=== PATIENT | female | born 2000 | race Caucasian/White ===

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

== ENCOUNTER 2024-11-23 18:23 | Emergency (ER) | payer MEDICARE, MEDICAID ==
[2024-11-23] MEDS ORDERED: Sodium Chloride 0.9% 10 ML Syringe FLUSH PRN (21:28)
[2024-11-23 21:51] LABS: BASOPHILS PERCENT AUTO 0.1 % (0.0-1.0); EOSINOPHILS PERCENT AUTO 0.1 % (1.0-3.0); LYMPHOCYTES PERCENT AUTO 16.8 % (20.5-50.1); MONOCYTES PERCENT AUTO 12.3 % (2-8); NEUTROPHILS PERCENT AUTO 70.7 % (42.2-75.2); PLATELET COUNT,PLT 261 10^3/uL (150-450); RED BLOOD CELL COUNT 4.19 10^6/uL (4.2-5.4); WHITE BLOOD CELL COUNT,WBC 9.0 10^3/uL (5.0-10.0)
[2024-11-23] MEDS: Lactated Ringers 1,000 ML IV ONE (21:52)
[2024-11-23] MEDS: Ondansetron 4 MG/2 ML SDV IVPUSH ONE (21:55)
[2024-11-23] MEDS: Ketorolac 30 MG/ML SDV IVPUSH ONE (21:55)
[2024-11-23 22:12] LABS: A/G RATIO 0.74; ALANINE AMINOTRANSFERASE,ALT 31 U/L (14-59); ASPARTATE AMNIOTRANSFERASE,AST 22 U/L (15-37); BILIRUBIN TOTAL 0.3 mg/dL (0.2-1.0); BLOOD UREA NITROGEN,BUN 7 mg/dL (7-18); CARBON DIOXIDE,CO2 28 mmol/L (21-32); CHLORIDE,CL 99 mmol/L (98-107); CREATININE 0.65 mg/dL (0.55-1.02); ESTIMATED GFR 125 mL/min (>=60); GLUCOSE RANDOM 113 mg/dL (70-99); POTASSIUM,K 3.2 mmol/L (3.5-5.1); PROTEIN TOTAL,TP 7.5 g/dL (6.4-8.2); SODIUM,NA 136 mmol/L (136-145)
[2024-11-23 22:14] LABS: LACTIC ACID 0.6 mmol/L (0.4-2.0)
[2024-11-23] MEDS: Iopamidol 612 MG/ML 100 ML Bottle IVPUSH ONE (22:41)
[2024-11-23] MEDS: Potassium Chloride 10 MEQ Tab.ER PO ONE (23:45)
[2024-11-24 00:25] LABS: APPEARANCE,URINE CLEAR (CLEAR); GLUCOSE,URINE NEGATIVE (NEGATIVE); OCCULT BLOOD,URINE NEGATIVE (NEGATIVE)
== END 2024-11-24 00:38 | disposition home or self-care (01) ==
LOC: DL.ED 18:23
DX: J21.9 Acute bronchiolitis, unspecified (principal); E87.6 Hypokalemia; R11.12 Projectile vomiting; E66.9 Obesity, unspecified; Z88.8 Allergy status to other drugs, medicaments and biological substances
CPT/HCPCS: 36415; 74177; 80053; 81003; 83605; 83690; 83735; 85025; 87428; 96374; 96375; 99284; A9270; J1308; J1885; J2405; J2765; J7120; Q9967